=== PATIENT | male | born 1950 | race Caucasian/White ===

== ENCOUNTER → 2023-10-29 | Outpatient (CLI) | payer MEDICARE | END | disposition home or self-care (01) | LOC: RAH 08:59 | PROVIDERS: ATTEND Family Medicine | DX: I51.7 Cardiomegaly (principal); I51.89 Other ill-defined heart diseases; I44.7 Left bundle-branch block, unspecified | CPT/HCPCS: 93306 ==

== ENCOUNTER → 2023-12-24 | Outpatient (CLI) | payer MEDICARE ==
[2023-12-24] MEDS: REGADENOSON 0.4 MG/5 ML PF SYG IVP SCH (14:27)
== END | disposition home or self-care (01) ==
LOC: RAH 08:48
PROVIDERS: ATTEND Family Medicine
DX: I44.7 Left bundle-branch block, unspecified (principal); R06.00 Dyspnea, unspecified; I49.3 Ventricular premature depolarization; I51.7 Cardiomegaly; R07.9 Chest pain, unspecified
CPT/HCPCS: 78452; 93017; J2785; A9500 ×2; 96374